=== PATIENT | male | born 1975 | race Caucasian/White ===

== ENCOUNTER 2016-10-16 07:35 | Outpatient (CLI) | payer BC ==
[~2016-10-16] VITALS: Ht 175.3 cm; Wt 85.5 kg
--- NOTE | ~2016-10-16 | HEMODYNAMI ---
PATIENT:ANA LAURA CAPPS MEDICAL RECORD: [id number] : 75 LOCATION:D.CAT ADMISSION DATE: 10/16/16 Generatedon:10/16/201610:46 Patient name: ANA LAURA CAPPS Patient #: [id number] SSN: DO B: 1975 Date of study: 10/16/2016 Page: Of Hemodynamic Procedure Report Patient Data Patient Demographics Procedure consent was obtained First Name: ANA LAURA Gender: Male Last Name: GÉNESIS : 1975 [facility] Initial: JANINE Age: 41 year(s) Patient #: [id number] Race: Additional ID: [id number] Contact details [address]: [address] [place] [address] State: [place] City: [place] Zip code: [address] Past Medical History Allergies Allergen Reaction Date Comments Reported Sulfa drugs 10/16/2016 Admission Admission Data Admission Date: 10/16/2016 Admission Time: 7:35 Admit Source: Other Lab Results Lab Result Date: 10/16/2016 Lab Result Time: 0:00 Biochemistry Name Units Result Min Max BUN mg/dl 18 --(---*)-- 7 18 Creatinine mg/dl 1 --(--*-)-- 0.6 1.3 CBC Name Units Result Min Max Hemoglobin g/dl 15.2 --(-*--)-- 13.5 17.5 Procedure Procedure Types Cath Procedure Diagnostic Procedure C [facility] w/Coronaries Procedure Description Procedure Date Procedure Date: 10/16/2016 Procedure Start Time: 10:35 Procedure End Time: 10:45 Procedure Staff Name Function Alfredito Hayden MD Performing Physician Danny Purcell RT Scrub Fly Salcedo RN Nurse Rachid Ramirez RT Senior Environmental Engineer Kellie Alfred RT Monitor Procedure Data Cath Procedure Fluoroscopy Diagnostic fluoroscopy Total fluoroscopy Time: 1 time: 1 min min Diagnostic fluoroscopy Total fluoroscopy dose: 231 dose: 231 mGy mGy Contrast Material Contrast Material Type Amount (ml) Isovue 300 43 Entry Location Entry Primary Successful Side Size Upsize Upsize Entry Closure Plaza ccessful Closure Location (Fr) 1 (Fr) 2 (Fr) Remarks Device Remarks Radial Right 6 Fr Manual artery Short Compression Estimated blood loss: 5 ml Diagnostic catheters Device Type Used For End Catheter Placement Terumo 5Fr Morris 110cm LV Angiography catheter Terumo 5Fr Morris 110cm Left Coronary catheter Angiography Terumo 5Fr Morris 110cm Right Coronary catheter Angiography Procedure Complications No complications Procedure Medications Medication Administration Route Dosage Oxygen NC 2 l/min Benadryl I.V. 50 mg Lidocaine 2% added to field 20 Heparin Flush Bag added to field 2 bags (1000units/500ml NS) 0.9% NaCl I.V. 100 ml/hr Versed I.V. 2 mg Fentanyl I.V. 100 mcg Radial Cocktail I.A. 1 syringe (Verapomil 2mg/Nitro 400mcg/Heparin 1500units) Versed I.V. 1 mg Fentanyl I.V. 50 mcg Hemodynamics Rest HGB: 15.2 (g/dl) Heart Rate: 74 (bpm) Pressure Samples Time Site Value (mmHg) Purpose Heart Use Rate(bpm) 10:38 LV 106/33,57 Snapshot 82 Snapshots Pre Cath Intra NCS Post Cath Vital Signs Time Heart Resp SPO2 etCO2 EB0xstk NIBP (mmHg) Rhythm Pain Sedation Rate (ipm) (%) (mmHg) (mmHg) Status Level (bpm) 10:30:59 82 17 100 0 0 130/90(119) NSR 0 (11) 10(A) , No pain 10:35:55 79 17 96 0 0 126/78(111) NSR 0 (11) 10(A) , No pain 10:40:10 116 16 97 0 0 128/67(78) NSR 0 (11) 9(A) , No pain 10:44:20 96 18 95 0 0 127/79(100) NSR 0 (11) 10(A) , No pain Medications Time Medication Route Dose Verified Delivered Reason Notes Effectiveness by by 10:28:06 0.9% NaCl I.V. 100 Alfredito Buffie Per ml/hr Catracho Salcedo RN physician 10:28:32 Benadryl I.V. 50 mg Alfredito Buffie used for Catracho Salcedo RN procedure 10:28:43 Lidocaine 2% added 20ml Alfredito Buffie used for to vial Catracho Salcedo RN procedure field 10:28:49 Heparin Flush added 2 bags Alfredito Bill used for Bag to Catracho Salcedo RN procedure (1000units/500ml field NS) 10:28:57 Oxygen NC 2 l/min Alfredito Clarkie used for Catracho Salcedo RN procedure 10:32:35 Versed I.V. 2 mg Alfredito Bill for sedation Catracho Salcedo RN 10:32:46 Fentanyl I.V. 100 mcg Alfredito Bill for sedation Catracho Salcedo RN 10:38:17 Radial Cocktail I.A. 1 Alfredito Glaser for (Verapomil syringe Catracho Hayden MD vasodilation 2mg/Nitro 400mcg/Heparin 1500units) 10:40:20 Versed I.V. 1 mg Alfredito Bill for sedation Catracho Salcedo RN 10:40:25 Fentanyl I.V. 50 mcg Alfredito Bill for sedation Catracho Salcedo RN Procedure Log Time Note 10:00:02 Rachid Ramirez RT(R) sent for patient. Start room use. 10:11:57 Admit Source: Other 10:12:00 Diagnostic Cath status Elective 10:12:06 Time tracking: Regular hours 10:12:10 Plan of Care:Hemodynamics will remain stable., Cardiac rhythm will remain stable., Comfort level will be maintained., Respiratory function will remain adequate., Patient/ family verbilizes understanding of procedure., Procedure tolerated without complication., Recovers from procedure without complications.. 10:13:27 Patient received from Outpatients to [facility] 2 Alert and oriented. Tansferred to table in Supine position. 10:13:28 Warm blankets applied, and magalis hugger turned on for patient comfort. 10:13:29 Correct patient and procedure confirmed by team. 10:13:30 Signed procedure consent form obtained from patient. 10:13:31 ECG and BP/O2 sat monitors applied to patient. 10:13:32 Full Disclosure recording started 10:14:06 H&P Date Dictated: 09/22/2016 Within 30 days and on chart., H&P Addendum completed by physician on day of procedure. (MUST COMPLETE FOR ALL OUTPATIENTS). 10:14:09 Pre-procedure instructions explained to patient. 10:14:09 Pre-op teaching completed and patient verbalized understanding. 10:14:10 Family in waiting room. 10:14:12 Patient NPO since Midnight. 10:16:27 Patient allergic to Sulfa drugs 10:16:30 Is the patient allergic to Iodine/contrast media? No. 10:16:31 Is patient on blood thinner?Yes 10:16:33 ACC The patient was administered the following blood thiners within the last 24 hours: ACCPlavix 10:16:35 Patient diabetic? No. 10:16:42 Previous problem with sedation/anesthesia? No ? 10:16:44 Snore? Yes 10:16:46 Sleep apnea? No 10:16:47 Deviated septum? No 10:16:48 Opens mouth fully? Yes 10:16:48 Sticks out tongue? Yes 10:16:50 Airway obstruction? No ? 10:16:53 Dentures? No ? 10:16:58 Pre procedure: right dorsailis pedis pulse 2+ Normal; easily identifiable; not easily obliterated 10:25:19 Modified Guillermo's test Ulnar < 7 seconds 10:25:35 Patient pain scale 0/10 ?. 10:25:53 IV patent on arrival in left antecubital with 0.9% NaCl at 10ml/hr. 10:26:20 Lab Result : BUN 18 mg/dl 10:26:20 Lab Result : Hemoglobin 15.2 g/dl 10:26:20 Lab Result : Creatinine 1 mg/dl 10:26:24 Lab results completed and on chart. 10:26:27 Right Radial & Right Groin area was prepped with chlora-prep and draped in sterile fashion 10:26:28 Alarms reviewed by R. N. 10:26:29 Sharps counted by scrub and verified by R.N. 10:26:50 Use device set Radial Dx 10:26:51 Acist Syringe opened to sterile field. 10:26:51 Cardinal Cath Pack opened to sterile field. 10:26:52 Bag Decanter opened to sterile field. 10:26:52 Terumo 6Fr Slender Glidesheath opened to sterile field. 10:26:53 St William 260cm J .035 wire opened to sterile field. 10:26:53 Acist Hand Control opened to sterile field. 10:26:54 Acist Manifold opened to sterile field. 10:26:55 Tegaderm 4 x 4 opened to sterile field. 10:28:06 0.9% NaCl 100 ml/hr I.V. was given by Fly Salcedo RN; Per physician; 10:28:32 Benadryl 50 mg I.V. was given by Fly Salcedo RN; used for procedure; 10::43 Lidocaine 2% 20ml vial added to field was given by Fly Salcedo RN; used for procedure; 10:28:49 Heparin Flush Bag (1000units/500ml NS) 2 bags added to field was given by Fly Salcedo RN; used for procedure; 10::57 Oxygen 2 l/min NC was given by Fly Salcedo RN; used for procedure; 10::55 Vital chart was started 10::58 Rhythm: sinus rhythm 10:30:10 Final Timeout: patient, procedure, and site verified with staff and physician. All members of the team are in agreement. 10:30:23 Right Radial & Right Groin site verified by team. 10:30:26 Physical assessment completed. ASA score P 2 - A patient with mild systemic disease as per Alfredito Hayden MD. 10:30:30 Sedation plan: IV Moderate Sedation Versed, Fentanyl 10:30:34 Baseline sample Acquired. 10:32:35 Versed 2 mg I.V. was given by Fly Salcedo RN; for sedation; 10:32:46 Fentanyl 100 mcg I.V. was given by Fly Salcedo RN; for sedation; 10:34:31 Procedure started. 10:35:42 Local anesthetic to right radial artery with Lidocaine 2% by Alfredito Hayden MD.INITIAL ACCESS ONLY 10:35:53 Zero performed for pressure channel P1 10:35:56 Zero performed for pressure channel P1 10:35:59 Zero performed for pressure channel P1 10:36:29 A 6 Fr Short sheath was inserted into the Right Radial artery 10:38:04 A Modiv Media 5Fr Morris 110cm catheter was advanced over the wire and used for LV Angiography. 10:38:17 Radial Cocktail (Verapomil 2mg/Nitro 400mcg/Heparin 1500units) 1 syringe I.A. was given by Alfredito Hayden MD; for vasodilation; 10:38:55 LV gram done using LOPEZ 10:39:01 EF : 60 % 10:39:07 Injector settings: Ml/sec: 10, Volume: 20, 10:39:20 A Terumo 5Fr Morris 110cm catheter was advanced over the wire and used for Left Coronary Angiography. 10:40:12 A Terumo 5Fr Morris 110cm catheter was advanced over the wire and used for Right Coronary Angiography. 10:40:20 Versed 1 mg I.V. was given by Fly Salcedo RN; for sedation; 10:40:21 Catheter removed. 10:40:25 Fentanyl 50 mcg I.V. was given by Fly Salcedo RN; for sedation; 10:40:32 Terumo TR Band Standard opened to sterile field. 10:40:45 Sheath removed intact; hemostasis achieved with Manual Compression to the Right Radial artery. 10:40:48 Procedure ended.(Physican Out) 10:41:17 Fluoroscopy time 01.00 minutes. 10:41:22 Fluoroscopy dose: 231 mGy 10:41:22 Flurop Dose total: 231 10:41:33 Contrast amount:Isovue 300 43ml. 10:41:34 Sharps counted by scrub and verified by R.N. 10:41:38 TR band inflated with 12cc of air. 10:41:39 Insertion/operative site no bleeding no hematoma. 10:41:53 Post right radial artery:stable, clean and dry 10:41:55 Post Procedure Pulses reassessed and unchanged 10:42:01 Post-procedure physical assessment completed. ASA score P 2 - A patient with mild systemic disease as per Alfredito Hayden MD. 10:42:03 Post procedure rhythm: unchanged. 10:42:08 Estimated blood loss: 5 ml 10:42:09 Post procedure instruction explained to patient.Patient verbalizes understanding. 10:42:09 Patient needs reinforcement of post procedure teaching. 10:42:21 Procedure Complication : No complications 10:43:04 Procedure and supply charges have been captured, reviewed, submitted and are correct. 10:43:05 See physician's report for complete and final results. 10:45:01 Vital chart was stopped 10:45:04 Report given to Post Procedure Room. 10:45:09 Patient transfered to Post Procedure Room with Stretcher. 10:45:19 Procedure ended. 10:45:19 Full Disclosure recording stopped 10:45:22 End room use (Document Last) Device Usage Item Name Manufacture Quantity Catalog Hospital Part Current Minimal Lot# / Number Charge Number Stock Stock Serial# Code [facility]ist [facility] 1 [id number] [id number] 063781 [id number] 20 Syringe [employer] Cardinal Cardinal 1 [id number] [id number] 68059 212871 5 Cath Pack Health Bag Microtek 1 [id number] 61640 326733 5 Decanter [employer] Terumo 6Fr Terumo 1 [id number] 237922 545211 939776 [address] [facility] 1 017828 421414 764320 803098 30 260cm J .035 wire Acist Hand Acist 1 88057 706740 565643 705909 5 Control [employer] Inc Acist Acist 1 47354 567638 647830 636027 5 Manifold [employer] Inc Tegaderm 4 3M 1 [id number] 773051 807519 544303 5 x 4 Terumo 5Fr Terumo 1 40-6744 371261 037382 368076 5 Morris 110cm catheter Terumo TR Terumo 1 [id number] 406264 990815 434196 40 Band Standard Signature Audit Gypsy Stage Time Signature Unsigned Intra-Procedure 10/16/2016 Kellie 10:46:13 AM Counts RT(R) Signatures Monitor : Kellie Signature : Counts RT Date : Time : [id number] [place] [address]
[2016-10-16 09:21] LABS: BASOPHILS 0.3 % (0.0-2.0); EOSINOPHILS 0.1 % (0-7); HEMATOCRIT 44.3 % (42.0-54.0); HEMOGLOBIN 15.2 g/dL (13.5-17.5); IMMATURE GRANULOCYTES 0.3 % (0-5); LYMPHOCYTES 17.8 % (15-50); MCH 31.3 pg (26.0-34.0); MCHC 34.3 g/dL (31.0-37.0); MCV 91.2 fL (80.0-100.0); MEAN PLATELET VOLUME 10.2 fL (7.4-10.4); NEUTROPHILS 76.5 % (40-80); PLATELET COUNT 216 10x3/uL (130-400); RBC 4.86 10x6/uL (4.20-6.10); RDW 12.1 % (11.5-14.5); WBC 6.9 10x3/uL (4.8-10.8)
[2016-10-16] MEDS ORDERED: PLAVIX75 MG PO (09:22)
[2016-10-16 09:29] VITALS: BP 138/84; Ht 175.3 cm; Wt 85.5 kg
[2016-10-16 09:31] LABS: CALC OSMOLALITY 287 mosm/kg (275-300); CALCIUM 9.3 mg/dL (8.5-10.1); CARBON DIOXIDE 28.7 mmol/L (21.0-32.0); CHLORIDE - SERUM 107 mmol/L (98-107); GLUCOSE 124 mg/dL (74-106); POTASSIUM - SERUM 4.5 mmol/L (3.5-5.1); SODIUM 143 mmol/L (136-145); UREA NITROGEN 18 mg/dL (7-18); eGFR NON AFRICAN AMERICAN 87 mL/min (90-120)
[2016-10-16] MEDS ORDERED: BAYER CHEWABLE81 MG PO (10:57)
[2016-10-16] MEDS ORDERED: BAYER CHEWABLE81 MG (10:57)
--- NOTE | 2016-10-16 11:19 | NUR ---
CHEST PAIN DENIED WITH VSS TR BAND TO R/WRIST CDI NO BLEEDING NO HEMATOMA NOTED. FAMILY AT SIDE
--- NOTE | 2016-10-16 11:50 | NUR ---
CHEST PAIN DENIED WITH TR BAND TO R/WRIST CDI NO BLEEDING NO HEMATOMA NOTED. VSS WITH FAMILY AT SIDE
--- NOTE | 2016-10-16 12:15 | NUR ---
1215 VSS WITH CHEST PAIN DENIED TR BAND REMAINS CDI NO BLEEDING NO HEMATOMA NOTED
--- NOTE | 2016-10-16 12:38 | NUR ---
2 CC AIR REMOVED FROM TR BAND WITH NO BLEEDING NO HEMATOMA NOTED
--- NOTE | 2016-10-16 12:56 | NUR ---
PIV REMOVED WITH DRESSING APPLIED. 2 CC AIR REMOVED FROM TR BAND WITH NO BLEEDING NO HEMATOMA NOTED PATIENT UP TO GET DRESSED FOR DISCHARGE
--- NOTE | 2016-10-16 13:01 | NUR ---
TR BAND REMOVED WITH NO BLEEDING NO HEMATOMA NOTED. DISCHARGE INSTRUCTIONS GONE OVER WITH PATIENT AND LEFT VIA WC FOR TO DRIVE HOME CHEST PAIN DENIED
--- NOTE | 2016-10-22 13:59 | OP ---
PATIENT NAME: ANA LAURA CAPPS MEDICAL RECORD: [id number] :75 LOCATION:D.CAT ADMISSION DATE: SURGEON: DARIN NICHOLS MD DATE OF OPERATION: 10/16/2016 PROCEDURES: 1. Left heart catheterization. 2. Selective coronary angiography. 3. Left ventriculogram. INDICATION: Chest pain compatible with angina and abnormal nuclear stress test. DESCRIPTION OF PROCEDURE: After informed consent was obtained and after a detailed explanation of the risks, benefits, as well as alternative therapies, the patient elected to proceed with angiogram and heart catheterization. The right radial area was prepped and draped in normal sterile fashion. The right radial artery was cannulated via modified Seldinger technique with placement of 5-Uzbek sheath. All catheters exchanged through this sheath. FINDINGS: Left ventriculogram was performed in standard 30-degree LOPEZ view, reveals good cardiac wall motion throughout all segments. Overall ejection fraction estimated at 60%. SELECTIVE CORONARY ANGIOGRAPHY: Left main, left anterior descending, left circumflex and right coronary artery are smooth-walled vessels with no angiographic evidence of coronary artery disease. OVERALL IMPRESSION: 1. No angiographic evidence of coronary artery disease. 2. Normal left heart pressures. 3. Normal left ventricular systolic function. Chest pain is noncardiac in etiology. No further cardiac workup needs to be ascertained. TRANSINT:[id number] Voice Confirmation ID: [id number] DOCUMENT ID: [id number] DARIN NICHOLS MD at 1359 CC: [id number] DICTATION DATE: 10/16/16 1044 NUCLEAR FUEL ENRICHMENT TECHNICIAN: 10/16/16 1619 [facility] CLI 10/16/16 [place] [id number]
== END 2016-10-16 13:03 | disposition home or self-care (01) ==
LOC: D.CATH 07:35
PROVIDERS: Internal Medicine Interventional Cardiology
DX: R07.89 Other chest pain (principal)